=== PATIENT | female | born 1965 | race Caucasian/White ===

== ENCOUNTER 2021-01-19 13:32 | Emergency (ER) | payer BC ==
[2021-01-19 15:47] LABS: HEMOGLOBIN 11.4 gm/dl (12.3-15.3); RED BLOOD COUNT 4.23 M/UL (4.00-5.10); WHITE BLOOD COUNT 5.3 K/UL (4.5-11.0)
[2021-01-19 16:06] LABS: BUN/CREATININE RATIO 11 (0-10)
[2021-01-19] MEDS ORDERED: [UNRECOGNIZED DRUG - REMARK] (17:49)
== END 2021-01-19 18:20 | disposition home or self-care (01) ==
LOC: ER1 13:32
PROVIDERS: Emergency Medicine
DX: R55 Syncope and collapse (principal); E87.1 Hypo-osmolality and hyponatremia; R00.1 Bradycardia, unspecified
CPT/HCPCS: 70450; 71045; 80053; 81001; 82550; 82553; 83874; 84439; 84443; 84484; 85025; 85610; 85730; 93005; 93242; 99284

== ENCOUNTER → 2022-06-16 | Outpatient (CLI) | payer BC ==
[~2022-06-16] MED LIST: [UNRECOGNIZED DRUG - REMARK]
== END ==
LOC: KOH-I 10:29
DX: M25.512 Pain in left shoulder (principal); M75.52 Bursitis of left shoulder; M19.012 Primary osteoarthritis, left shoulder
CPT/HCPCS: 73221